=== PATIENT | female | born 1985 | race Caucasian/White ===

== ENCOUNTER 2016-11-26 00:41 | Emergency (ER) | payer OTHER ==
[~2016-11-26] VITALS: Ht 157.5 cm; Wt 67.0 kg
[~2016-11-26 00:41] MED LIST: AZIT250T PO; CIPR500T94 PO; CYCL-331 PO; DIAZ5TAB PO; HYDR-971 PO; ONDA4TAB7 PO; VALA500T5 PO; [UNRECOGNIZED DRUG - CODE] PO
--- NOTE | 2016-11-26 01:14 | ED.ADGEN ---
Past History Past Medical History: No Pertinent History Past Surgical History: No Surgical History Smoking: Non-smoker Alcohol Use: None Drug Use: None Adult General HPI HPI Patient is a 31-year-old woman, no significant past no history, who presents to the emergency department with a complaint of lower abdominal and pelvic pain. Patient states pain began about an hour ago, she states that she had had intercourse with her area patient states that she initially believed that her menses were about began, as she was experiencing abdominal cramping. She states that she attempted to have a bowel movement, and the pain became much more intense. She did not have a bowel movement at that time, states she did become nauseous. She denies any discharge or drainage from the vagina, any bleeding or injury, states that she may have had similar symptoms previously, when she experienced a urinary tract infection, states she is having cramping from her abdomen extending into her back at times. She denies any surgeries on her abdomen, denies any fevers or chills, states that she had one episode of nausea and vomiting. Has not taken any medications prior to come to the ED. Her last bowel movement was around 5:30 this evening, and was normal. No fevers, no chills, no sick contacts or exposures, no weakness, numbness, tingling, rashes, swelling extremities or other complaints. She states that when she uses the restroom in the emergency department, she did have some mild discomfort with urination. Review of Systems Review of Systems Constitutional: Denies fever or chills [] Eyes: Denies change in visual acuity, redness, or eye pain [] HENT: Denies nasal congestion or sore throat [] Respiratory: Denies cough or shortness of breath [] Cardiovascular: No additional information not addressed in HPI [] GI: Lower abdominal pain, sustained 1 episode of nausea and vomiting, no bloody stools or diarrhea. : Dysuria, no hematuria. Musculoskeletal: Denies back pain or joint pain [] Integument: Denies rash or skin lesions [] Neurologic: Denies headache, focal weakness or sensory changes [] Endocrine: Denies polyuria or polydipsia [] Current Medications Current Medications Current Medications Medications (Trade) Dose Ordered Sig/Trish Start Time Stop Time Status Last Admin Dose Admin Fentanyl Citrate (Fentanyl 2ml Vial) 25 mcg PRN Q15MIN PRN 11/26/16 02:00 11/27/16 01:59 11/26/16 04:35 25 MCG Info (Do NOT chart on this entry -- for MONITORING) 1 each PRN DAILY PRN 11/26/16 02:00 11/28/16 01:59 Iohexol (Omnipaque 300 Mg/ml) 75 ml 1X ONCE 11/26/16 02:00 11/26/16 02:01 DC 11/26/16 02:16 75 ML Ondansetron HCl (Zofran) 4 mg 1X ONCE 11/26/16 02:00 11/26/16 02:01 DC 11/26/16 02:00 4 MG Oxycodone/ Acetaminophen (Percocet 7.5/ 325) 1 tab 1X ONCE 11/26/16 05:30 11/26/16 05:31 DC Sodium Chloride 1,000 ml @ 1,000 mls/hr 1X ONCE 11/26/16 02:00 11/26/16 02:59 DC 11/26/16 02:00 1,000 MLS/HR Allergies Allergies Allergies Coded Allergies Type Severity Reaction Last Updated Verified Penicillins Allergy Unknown 03/12/16 Yes amoxicillin Allergy Unknown 03/12/16 Yes Physical Exam Physical Exam Constitutional: Well developed, well nourished, ears uncomfortable, non-toxic appearance. [] HENT: Normocephalic, atraumatic, bilateral external ears normal, oropharynx moist, no oral exudates, nose normal. [] Eyes: PERRLA, EOMI, conjunctiva normal, no discharge. [] Neck: Normal range of motion, no tenderness, supple, no stridor. [] Cardiovascular:Heart rate regular rhythm, no murmur , S1, S2, no rubs or gallops. [] Lungs & Thorax: Bilateral breath sounds clear to auscultation , no wheezing, rhonchi, rales. No chest wall crepitus or tenderness. [] Abdomen: Bowel sounds normal, soft, tender to palpation along the pelvic region and suprapubic region, patient with voluntary guarding, no rebound, no rigidity , no masses, no pulsatile masses. Pain with motion. Skin: Warm, dry, no erythema, no rash. [] Back: No tenderness, no CVA tenderness. [] Extremities: No tenderness, no cyanosis, no clubbing, ROM intact, no edema. [] Neurologic: Alert and oriented X 3, normal motor function, normal sensory function, no focal deficits noted. [] Psychologic: Affect normal, judgement normal, mood normal. [] Pelvic examination: Normal-appearing external examination, small amount of white discharge noted on glove, bimanual examination reveals tenderness with cervical motion, no masses palpated, patient has pain with motion throughout the pelvic region, left and right. Speculum examination reveals mildly friable cervix with a small amount of white discharge. Current Patient Data Vital Signs Vital Signs Date Time Temp Pulse Resp B/P (MAP) Pulse Ox O2 Delivery O2 Flow Rate FiO2 11/26/16 04:45 78 132/57 (82) 11/26/16 04:00 98 Room Air 11/26/16 00:41 97.6 22 Lab Results Laboratory Tests Test 11/26/16 00:50 11/26/16 01:18 11/26/16 01:32 11/26/16 02:14 Urine Collection Type Unknown Urine Color Yellow Urine Clarity Hazy Urine pH 5.5 Urine Specific [place] >=1.030 Urine Protein Neg (NEG-TRACE) Urine Glucose (UA) Neg mg/dL (NEG) Urine Ketones (Stick) Trace mg/dL (NEG) Urine Blood Neg (NEG) Urine Nitrite Neg (NEG) Urine Bilirubin Neg (NEG) Urine Urobilinogen Dipstick 1 mg/dL (0.2 mg/dL) Urine Leukocyte Esterase Mod (NEG) Urine RBC 0 /HPF (0-2) Urine WBC Occ /HPF (0-4) Urine Squamous Epithelial Cells Few /LPF Urine Bacteria Few /HPF (0-FEW) Urine Opiates Screen Neg (NEG) Urine Methadone Screen Neg (NEG) Urine Barbiturates Neg (NEG) Urine Phencyclidine Screen Neg (NEG) Urine Amphetamine/Methamphetamine Neg (NEG) Urine Benzodiazepines Screen Neg (NEG) Urine Cocaine Screen Neg (NEG) Urine Cannabinoids Screen Neg (NEG) Urine Ethyl Alcohol Neg (NEG) POC Urine HCG, Qualitative hcg negative (Negative) White Blood Count 10.7 x10^3/uL (4.0-11.0) Red Blood Count 4.64 x10^6/uL (3.50-5.40) Hemoglobin 13.6 g/dL (12.0-15.5) Hematocrit 39.4 % (36.0-47.0) Mean Corpuscular Volume 85 fL (79-100) Mean Corpuscular Hemoglobin 29 pg (25-35) Mean Corpuscular Hemoglobin Concent 35 g/dL (31-37) Red Cell Distribution Width 13.6 % (11.5-14.5) Platelet Count 180 x10^3/uL (140-400) Neutrophils (%) (Auto) 73 % (31-73) Lymphocytes (%) (Auto) 19 % (24-48) L Monocytes (%) (Auto) 6 % (0-9) Eosinophils (%) (Auto) 1 % (0-3) Basophils (%) (Auto) 1 % (0-3) Neutrophils # (Auto) 7.8 x10^3uL (1.8-7.7) H Lymphocytes # (Auto) 2.0 x10^3/uL (1.0-4.8) Monocytes # (Auto) 0.7 x10^3/uL (0.0-1.1) Eosinophils # (Auto) 0.1 x10^3/uL (0.0-0.7) Basophils # (Auto) 0.1 x10^3/uL (0.0-0.2) Sodium Level 142 mmol/L (136-145) Potassium Level 3.8 mmol/L (3.5-5.1) Chloride Level 106 mmol/L (98-107) Carbon Dioxide Level 27 mmol/L (21-32) Anion Gap 9 (6-14) Blood Urea Nitrogen 10 mg/dL (7-20) Creatinine 1.0 mg/dL (0.6-1.0) Estimated GFR (Cockcroft-Gault) 64.7 BUN/Creatinine Ratio 10 (6-20) Glucose Level 106 mg/dL (70-99) H Calcium Level 8.6 mg/dL (8.5-10.1) Total Bilirubin 0.2 mg/dL (0.2-1.0) Aspartate Amino Transferase (AST) 24 U/L (15-37) Alanine Aminotransferase (ALT) 35 U/L (14-59) Alkaline Phosphatase 83 U/L (46-116) Total Protein 6.8 g/dL (6.4-8.2) Albumin 3.3 g/dL (3.4-5.0) L Albumin/Globulin Ratio 0.9 (1.0-1.7) L Lipase 122 U/L (73-393) Microbiology 11/26/16 Wet Prep - Final, Complete EKG EKG Not indicated. [] Radiology/Procedures Radiology/Procedures [] Course & Med Decision Making Course & Med Decision Making Pertinent Labs and Imaging studies reviewed. (See chart for details) Patient denies possibility of sexually-transmitted diseases, noted to have tenderness with motion of the cervix, but also with pain to palpation in the surrounding pelvic region. No masses palpated. Due to degree of patient's pain, concern for peritonitis, and location of symptoms, after discussion at bedside will proceed with laboratory studies and imaging of the abdomen with a CT. Patient receiving IV fluids, antiemetics, and pain medication. CT abdomen and pelvis obtained, reveals evidence of a 3.7 cm left-sided hemorrhagic ovarian cyst with a small amount of free fluid in the pelvis. Ultrasound obtained to rule out torsion, revealed good flow bilaterally, cyst approximated be 3.5 cm in this interpretation, with same small amount of free fluid in the pelvis. Patient's vital signs remained stable in the emergency department, blood pressure 120s over 70s and 80s, heart rate in the 70s and 80s, orthostatics are negative. She has had no further episodes of emesis, and pain is well controlled after receiving several doses of fentanyl. I did discuss findings with patient, her laboratory studies are unremarkable, and her examination is consistent with hemorrhagic ovarian cyst, without evidence of concerning bleeding or other concerning findings. Patient states that she is feeling better and would like to go home at this time. She does have an [employer], Dr. Zamudio with she can follow. I did discuss findings as above with Dr. Joseph OB/ PH[facility]IAN [employer]ACTICE CONSULTANT, as patient's symptoms are controlled this time, he recommends follow-up with her [employer]SULT[facility] in the clinic, and with him if she experiences difficulty in establishing follow-up care. Patient is agreeable this plan, she is ambulating without difficulty in the ED, has received oral dose of Percocet, in addition to the fentanyl, with normal orthostatics, given clear and detailed return instructions, follow-up instructions, medication precautions, and prescription for Percocet, 5/325 mg, #15, and Zofran No. 12. Patient voiced understanding and agreement with plan, , precautions, and instructions as stated, discharged home with family in stable condition with plan as above. Final Impression Final Impression [] Problems: Dragon Disclaimer Dragon Disclaimer This electronic medical record was generated, in whole or in part, using a voice recognition dictation system. Departure: Impression: Primary Impression: Hemorrhagic cyst of left ovary Disposition: HOME, SELF-CARE Condition: IMPROVED Scripts Oxycodone Hcl/Acetaminophen (PERCOCET 5-325 MG TABLET) 1 Each Tablet 1-2 TAB PO PRN Q6HRS Y for PAIN, #15 TAB Prov: GAYLE GARCIA DO 11/26/16 Ondansetron Hcl (ZOFRAN) 4 Mg Tablet 4 MG PO PRN Q8HRS Y for NAUSEA, #12 Prov: GAYLE GARCIA DO 11/26/16 GAYLE GARCIA DO Nov 26, 2016 01:14
[2016-11-26 01:40] LABS: COLOR,URINE YELLOW
[2016-11-26 01:41] LABS: BACTERIA,URINE FEW /HPF (0-FEW); BILIRUBIN,URINE NEG (NEG); CLARITY,URINE HAZY; GLUCOSE,URINE NEG (NEG); NITRITE,URINE NEG (NEG); RBC,URINE 0 /HPF (0-2); SQUAMOUS EPITHELIAL CELL,UR FEW /LPF; UROBILINOGEN,URINE 1 mg/dL (0.2 mg/dL); WBC,URINE OCC /HPF (0-4)
[2016-11-26 01:57] LABS: BARBITURATES NEG (NEG); BENZODIAZEPINES NEG (NEG); CANNABINOIDS NEG (NEG); COCAINE NEG (NEG); METHADONE NEG (NEG); OPIATES NEG (NEG); PHENCYCLIDINE NEG (NEG)
[2016-11-26] MEDS ORDERED: CONTRAST GIVEN MC PRN (02:00)
[2016-11-26] MEDS ORDERED: IV NORMAL SALINE 1,000ML 1,000 ML IV ONE (02:00)
[2016-11-26] MEDS ORDERED: IOHEXOL 300 MG/ML 75 ML VIAL. IV ONE (02:00)
[2016-11-26] MEDS ORDERED: ONDANSETRON PF 4 MG/2 ML VIAL. IV ONE (02:00)
[2016-11-26 02:01] LABS: AMPHETAMINE/METHAMPHETAMINE NEG (NEG)
[2016-11-26 02:06] LABS: BASO # 0.1 x10^3/uL (0.0-0.2); BASO % 1 % (0-3); EOS # 0.1 x10^3/uL (0.0-0.7); EOS % 1 % (0-3); HEMATOCRIT 39.4 % (36.0-47.0); HEMOGLOBIN 13.6 g/dL (12.0-15.5); LYMPH % 19 % (24-48); MEAN CORPUSCULAR HEMOGLOBIN 29 pg (25-35); MEAN CORPUSCULAR HGB CONC 35 g/dL (31-37); MEAN CORPUSCULAR VOLUME 85 fL (79-100); MONO # 0.7 x10^3/uL (0.0-1.1); MONO % 6 % (0-9); NEUT # 7.8 x10^3uL (1.8-7.7); NEUT % 73 % (31-73); PLATELET COUNT 180 x10^3/uL (140-400); RED BLOOD COUNT 4.64 x10^6/uL (3.50-5.40); RED CELL DISTRIBUTION WIDTH 13.6 % (11.5-14.5); WHITE BLOOD COUNT 10.7 x10^3/uL (4.0-11.0)
[2016-11-26] MEDS: fentaNYL PF 100 MCG/2 ML VIAL IV PRN ×2 (02:16→04:35)
[2016-11-26 02:41] LABS: ALBUMIN 3.3 g/dL (3.4-5.0); ALBUMIN/GLOBULIN RATIO 0.9 (1.0-1.7); CALCIUM 8.6 mg/dL (8.5-10.1); GFR 64.7; POTASSIUM 3.8 mmol/L (3.5-5.1); TOTAL BILIRUBIN 0.2 mg/dL (0.2-1.0); TOTAL PROTEIN 6.8 g/dL (6.4-8.2)
--- NOTE | 2016-11-26 02:48 | RAD ---
CT scan of the abdomen and pelvis with contrast 11/26/2016 CLINICAL HISTORY: Lower abdominal pain with nausea and vomiting since earlier today. TECHNIQUE: After the intravenous administration of 75 cc of Omnipaque 300, contiguous, 5 mm axial sections were obtained through abdomen and pelvis. Exposure: One or more of the following individualized dose reduction techniques were utilized for this examination: 1. Automated exposure control 2. Adjustment of the mA and/or kV according to patient size 3. Use of iterative reconstruction technique FINDINGS: Images through the lung bases are within normal limits. The liver, spleen, pancreas, adrenal glands and kidneys are within normal limits. The abdominal aorta tapers normally. The gallbladder appears to be contracted. No free fluid or free air is seen within the abdomen. There is no evidence of bowel obstruction. Air and stool is seen throughout the colon. The appendix is well-visualized and is within normal limits. Images through the pelvis demonstrate the urinary bladder distended with urine. A 3.7 cm oval-shaped low-attenuation structure is seen in the left adnexa which likely represents a left ovarian cyst. Small amount of free fluid is seen within the pelvis. Minimal S-shaped curvature of the thoracolumbar spine is seen. IMPRESSION: 3.7 cm probable left ovarian cyst. Small amount of free fluid is seen within the pelvis. Electronically signed by: Edward Robbins MD (11/26/2016 2:45 AM)
--- NOTE | 2016-11-26 04:43 | RAD ---
Pelvic ultrasound to include transabdominal and transvaginal imaging 11/26/2016 CLINICAL HISTORY: Left ovarian cyst seen on CT scan. TECHNIQUE: Using the distended urinary bladder as a sonographic window, a real-time ultrasound examination of the pelvis was performed. Additionally in an better evaluate the uterus and adnexa, a transvaginal ultrasound study was performed. Multiple images were obtained. FINDINGS: Comparison is made to the patient's CT scan of the abdomen and pelvis performed earlier today. The uterus is within normal limits in size and echogenicity. It measures 7.4 x 4.5 x 4.4 cm in longitudinal, transverse, and AP dimensions. The endometrial echo complex measures 9 mm in thickness which is within normal limits. No focal abnormality of the uterus is seen. The right ovary is normal in size and echogenicity. It measures 3.0 x 1.9 x 1.7 cm in size. The left ovary measures 4.0 x 3.0 x 2.8 cm in size. Within the left ovary an oval-shaped anechoic structure is seen with internal echogenicity which measures 3.5 cm in size. This likely represents a hemorrhagic cyst. This corresponds to the abnormality seen on the patient's CT scan. A small amount of free fluid is seen within the pelvic cul-de-sac. IMPRESSION: 3.5 cm probable hemorrhagic cyst is seen involving the left ovary. Small amount of free fluid is seen within the pelvis. Electronically signed by: Edward Robbins MD (11/26/2016 4:40 AM)
[2016-11-26 04:45] VITALS: BP 132/57
[2016-11-26] MEDS ORDERED: ONDA4TAB7 PO (05:28)
[2016-11-26] MEDS ORDERED: OXYC-323 PO (05:28)
[2016-11-26] MEDS ORDERED: oxyCODONE/APAP 7.5/325 1 TAB TABLET PO ONE (05:30)
[2016-11-28 20:07] LABS: CHLAMYDIA PROBE Negative (Negative)
== END 2016-11-26 05:50 | disposition home or self-care (01) ==
LOC: ER 00:41
DX: N83.202 Unspecified ovarian cyst, left side (principal); Z88.0 Allergy status to penicillin; Z88.1 Allergy status to other antibiotic agents
CPT/HCPCS: 36415; 74177; 76830; 76856; 80053; 80305; 80320; 81001; 81025; 83690; 85027; 87491; 87591; 96361; 96374; 96375; 96376; 99285; J2405; J3010; Q0111; Q9967; G0481; J7030

== ENCOUNTER → 2017-08-22 | Outpatient (CLI) | payer OTHER ==
[~2017-08-22] VITALS: Ht 157.5 cm; Wt 63.5 kg
[~2017-08-22] MED LIST changes: +OXYC-323 PO; +SINCALIDE 1.27 MCG in IV NORMAL SALINE 50ML 30 ML IV ONE
--- NOTE | 2017-08-22 08:24 | RAD ---
Right upper quadrant ultrasound 08/22/2017 Indication: Right upper quadrant pain, nausea. Comparison study: None Discussion: Ultrasound evaluation of the right upper quadrant was performed. Static images were submitted to PACS. Visualized portions of pancreas are unremarkable. Visualized portions of aorta and IVC are within normal limits. The liver is normal in echotexture. Liver is normal in size measuring 13.2 cm longitudinally. No focal hepatic lesions are identified. No intrahepatic biliary dilatation is identified. The gallbladder is partially decompressed. No significant wall thickening, stones, or sludge is seen. The common bile duct is nondilated at 3 mm. The right kidney is normal appearance measuring 9 cm in length. Impression: Unremarkable sonographic appearance of the right upper quadrant
--- NOTE | 2017-08-22 10:13 | RAD ---
Indication: Epigastric pain with nausea and vomiting for one month. Technique: Nuclear medicine HIDA scan with infusion of 5.5 mCi of technetium 99m Choletec. Ejection fraction was calculated after infusion of 1.3 mcg of cholecystokinin. Comparison: Ultrasound from 08/22 chest 2018 Findings: Gallbladder is visualized at 15 minutes with retrograde filling. Duodenum is visualized at 20 minutes. Ejection fraction calculated after infusion of 1.3 mcg of cholecystokinin is 54.2%. Impression: 1. No evidence of cystic duct obstruction. 2. Normal gallbladder ejection fraction of 54%.
== END | disposition home or self-care (01) ==
LOC: US 07:11
PROVIDERS: ATTEND Internal Medicine Gastroenterology
DX: R10.13 Epigastric pain (principal); R11.2 Nausea with vomiting, unspecified; G43.909 Migraine, unspecified, not intractable, without status migrainosus; K21.9 Gastro-esophageal reflux disease without esophagitis; Z79.2 Long term (current) use of antibiotics
CPT/HCPCS: 76705; 78226; 96374; 96375; A9537; J2805

== ENCOUNTER → 2017-08-28 | Outpatient (CLI) | payer OTHER ==
[~2017-08-28] MED LIST changes: -SINCALIDE 1.27 MCG in IV NORMAL SALINE 50ML 30 ML IV ONE
[2017-08-28 10:06] LABS: ALBUMIN/GLOBULIN RATIO 1.1 (1.0-1.7); CALCIUM 9.4 mg/dL (8.5-10.1); GFR 64.3; POTASSIUM 4.4 mmol/L (3.5-5.1); TOTAL BILIRUBIN 0.4 mg/dL (0.2-1.0); TOTAL PROTEIN 7.8 g/dL (6.4-8.2)
[2017-08-28 14:20] LABS: FREE T4 1.03 ng/dL (0.76-1.46); THYROID STIM HORMONE (TSH) 1.134 uIU/mL (0.358-3.740)
== END | disposition home or self-care (01) ==
LOC: LAB 09:17
PROVIDERS: ATTEND Internal Medicine Gastroenterology
DX: R10.13 Epigastric pain (principal); R11.2 Nausea with vomiting, unspecified; Z79.2 Long term (current) use of antibiotics
CPT/HCPCS: 36415; 80053; 82150; 83690; 84439; 84443

== ENCOUNTER → 2017-09-03 | Outpatient (CLI) | payer OTHER ==
--- NOTE | 2017-09-03 10:54 | RAD ---
Radionuclide gastric emptying study, 09/03/2017: History: Abdominal pain The study was performed utilizing a solid test meal radiolabeled with 2.1 mCi of technetium 99m sulfur colloid. The time to half emptying of the test meal from the patient's stomach was estimated at 324 minutes. A normal T1/2 is 60 minutes +/- 30 minutes. IMPRESSION: Moderately delayed gastric emptying
== END | disposition home or self-care (01) ==
LOC: NM 07:47
PROVIDERS: ATTEND Internal Medicine Gastroenterology
DX: K30 Functional dyspepsia (principal); G43.909 Migraine, unspecified, not intractable, without status migrainosus
CPT/HCPCS: 78264; A9541

== ENCOUNTER 2019-12-20 16:18 | Emergency (ER) | payer OTHER ==
[~2019-12-20] VITALS: Ht 157.5 cm; Wt 57.0 kg
[~2019-12-20 16:18] MED LIST changes: +HYDR-3165 PO; -HYDR-971 PO; -OXYC-323 PO; +OXYC1TAB15 PO
[2019-12-20 16:25] VITALS: BP 132/57
[2019-12-20] MEDS ORDERED: MAGNESIUM CITRATE 296 ML SOLUTION. PO ONE (17:00)
--- NOTE | 2019-12-20 17:08 | PHYS DOC ---
Past History Past Medical History: No Pertinent History, Ovarian Cyst Past Surgical History: No Surgical History Smoking: Non-smoker Alcohol Use: Rarely Drug Use: None General Adult EDM: Chief Complaint: BLOOD IN URINE HPI: HPI: Patient is a 34-year-old female who presents with 24 to 36-hour history of lower abdominal pain, dysuria and constipation. She denies any fever chills or sweats. She denies any nausea or vomiting. She said no cough or congestion. She denies any back or flank pain. [] Review of Systems: Review of Systems: Constitutional: Denies fever or chills Eyes: Denies change in visual acuity HENT: Denies nasal congestion or sore throat Respiratory: Denies cough or shortness of breath Cardiovascular: Denies chest pain or edema GI: Reports abdominal pain and constipation : Per HPI Musculoskeletal: Denies back pain or joint pain Integument: Denies rash Neurologic: Denies headache, focal weakness or sensory changes Endocrine: Denies polyuria or polydipsia Lymphatic: Denies swollen glands Psychiatric: Denies depression or anxiety Heart Score: Risk Factors: Risk Factors: DM, Current or recent (<one month) smoker, HTN, HLP, family history of CAD, obesity. Risk Scores: Score 0 - 3: 2.5% MACE over next 6 weeks - Discharge Home Score 4 - 6: 20.3% MACE over next 6 weeks - Admit for Clinical Observation Score 7 - 10: 72.7% MACE over next 6 weeks - Early Invasive Strategies Current Medications: Current Meds: Current Medications Medications (Trade) Dose Ordered Sig/Trish Start Time Stop Time Status Last Admin Dose Admin Magnesium Citrate (Citroma) 296 ml 1X ONCE 12/20/19 17:00 12/20/19 17:01 DC Allergies: Allergies: Allergies Coded Allergies Type Severity Reaction Last Updated Verified Penicillins Allergy Unknown 03/12/16 Yes amoxicillin Allergy Unknown 03/12/16 Yes Physical Exam: PE: Constitutional: Well developed, well nourished, no acute distress, non-toxic appearance. [] HENT: Normocephalic, atraumatic, bilateral external ears normal, oropharynx moist, no oral exudates, nose normal. [] Eyes: PERRLA, EOMI, conjunctiva normal, no discharge. [] Neck: Normal range of motion, no tenderness, supple, no stridor. [] Cardiovascular:Heart rate regular rhythm, no murmur [] Lungs & Thorax: Bilateral breath sounds clear to auscultation [] Abdomen: Bowel sounds normal, soft, no tenderness, no masses, no pulsatile masses. [] Skin: Warm, dry, no erythema, no rash. [] Back: No tenderness, no CVA tenderness. [] Extremities: No tenderness, no cyanosis, no clubbing, ROM intact, no edema. [] Neurologic: Alert and oriented X 3, normal motor function, normal sensory function, no focal deficits noted. [] Psychologic: Affect normal, judgement normal, mood normal. [] Current Patient Data: Vital Signs: Vital Signs Date Time Temp Pulse Resp B/P (MAP) Pulse Ox O2 Delivery O2 Flow Rate FiO2 12/20/19 16:25 98.0 67 16 132/57 (82) 96 Room Air EKG: EKG: [] Radiology/Procedures: Radiology/Procedures: []PROCEDURE: KUB Exam: Abdomen one view INDICATION: Constipation TECHNIQUE: Frontal view of the abdomen Comparisons: None FINDINGS: Large amount stool is noted in the descending and sigmoid colon. No dilated loops of bowel to suggest obstruction. No suspicious masses or calcifications. Visualized osseous structures are unremarkable. IMPRESSION: Large amount stool in the descending and sigmoid colon consistent with history of constipation. Course & Med Decision Making: Course & Med Decision Making Pertinent Labs and Imaging studies reviewed. (See chart for details) [] Dragon Disclaimer: Dragon Disclaimer: This electronic medical record was generated, in whole or in part, using a voice recognition dictation system. Departure Departure: Impression: Primary Impression: UTI (urinary tract infection) Qualified Codes: N39.0 - Urinary tract infection, site not specified; R31.9 - Hematuria, unspecified Additional Impression: Constipation Qualified Codes: K59.01 - Slow transit constipation Disposition: HOME/RESIDENCE PRIOR TO ADM Condition: STABLE Referrals: PCP,NO (PCP) Patient Instructions: Constipation, Adult, Urinary Tract Infection Additional Instructions: Return to the emergency department any new or concerning symptoms Scripts Nitrofurantoin Monohyd/M-Cryst (MACROBID 100 MG CAPSULE) 100 Mg Capsule 1 CAP PO BID for UTI, #10 CAP Prov: CASH TINSLEY DO 12/20/19 Justification of Admission: Justification of Admission: Justification of Admission Dx: No CASH TINSLEY DO Dec 20, 2019 17:08
--- NOTE | 2019-12-20 17:18 | RAD ---
Exam: Abdomen one view INDICATION: Constipation TECHNIQUE: Frontal view of the abdomen Comparisons: None FINDINGS: Large amount stool is noted in the descending and sigmoid colon. No dilated loops of bowel to suggest obstruction. No suspicious masses or calcifications. Visualized osseous structures are unremarkable. IMPRESSION: Large amount stool in the descending and sigmoid colon consistent with history of constipation. Electronically signed by: Bam Montiel MD (12/20/2019 5:15 PM) [id number]
[2019-12-20 17:41] LABS: BACTERIA,URINE FEW /HPF (0-FEW); BILIRUBIN,URINE NEG (NEG); CLARITY,URINE HAZY; COLOR,URINE YELLOW; GLUCOSE,URINE NEG (NEG); NITRITE,URINE NEG (NEG); SQUAMOUS EPITHELIAL CELL,UR MANY /LPF
[2019-12-20] MEDS ORDERED: NITR100C62 PO (17:46)
== END 2019-12-20 18:05 | disposition home or self-care (01) ==
LOC: ER 16:18
DX: N39.0 Urinary tract infection, site not specified (principal); R31.9 Hematuria, unspecified; Z88.0 Allergy status to penicillin; Z88.1 Allergy status to other antibiotic agents
CPT/HCPCS: 74018; 81001; 87086; 99284